=== PATIENT | male | born 1990 | race Caucasian/White ===

== ENCOUNTER 2020-01-12 06:35 | Emergency (ER) | payer SELFPAY ==
[2020-01-12] MEDS ORDERED: Sulfameth/Trimethoprim DS 800-160mg TAB ONE (07:12)
== END 2020-01-12 07:17 | disposition home or self-care (01) ==
LOC: BURERS 06:35
DX: L03.115 Cellulitis of right lower limb (principal); R00.0 Tachycardia, unspecified; J45.909 Unspecified asthma, uncomplicated; F17.210 Nicotine dependence, cigarettes, uncomplicated
CPT/HCPCS: 10060

== ENCOUNTER 2021-06-20 22:29 | Emergency (ER) | payer SELFPAY | END 2021-06-20 23:45 | disposition home or self-care (01) | LOC: BURERS 22:29 | DX: B34.9 Viral infection, unspecified (principal); F17.210 Nicotine dependence, cigarettes, uncomplicated | CPT/HCPCS: 99283 ==

== ENCOUNTER 2021-11-15 16:39 | Emergency (ER) | payer SELFPAY | END 2021-11-15 18:00 | disposition home or self-care (01) | LOC: BURERS 16:39 | DX: S43.101A Unspecified dislocation of right acromioclavicular joint, initial encounter (principal); J45.909 Unspecified asthma, uncomplicated; F17.210 Nicotine dependence, cigarettes, uncomplicated; X58.XXXA Exposure to other specified factors, initial encounter | CPT/HCPCS: 71045 ==

== ENCOUNTER 2022-04-09 12:05 | Emergency (ER) | payer SELFPAY ==
[2022-04-09] MEDS ORDERED: Ondansetron PF 4 MG/2 ML Vial ONE (12:21)
[2022-04-09] MEDS ORDERED: Ketorolac Tromethamine 30 MG/ML VIAL ONE (12:21)
[2022-04-09] MEDS ORDERED: Dicyclomine 20 MG/2 ML VIAL ONE (12:21)
[2022-04-09 12:34] LABS: #Eosinphils 0.1 thou/uL (0.0-0.7); #Lymphocytes 0.4 thou/uL (1.20-3.40); #Monocytes 0.6 thou/uL (0.11-0.59); #Neutrophils 9.8 thou/uL (1.40-6.50); %Basophils 0.3 % (0.0-1.0); %Eosinophils 0.8 % (0.0-10.0); %Lymphocytes 3.3 % (21.0-51.0); %Monocytes 5.3 % (0.0-10.0); %Neutrophils 90.3 % (42.0-75.0); Hemoglobin 17.3 g/dL (14.0-18.0); Mean Corpuscular HGB CONC 32.2 g/dL (32.0-36.0); Mean Corpuscular Hemoglobin 30.6 pg (27.0-31.0); Mean Corpuscular Volume 95.1 fl (78.0-98.0); Mean Platelet Volume 8.3 fL (7.4-10.4); Platelet Count 283 thou/uL (130-400); RBC Distribution Width 13.2 % (11.5-14.5); Red Blood Cell (RBC) Count 5.64 mill/uL (4.70-6.10); White Blood Cell (WBC) Count 10.8 thou/uL (4.8-10.8)
[2022-04-09 12:50] LABS: ALT (SGPT) 23 U/L (8-55); AST (SGOT) 15 U/L (5-34); Albumin 4.4 g/dL (3.5-5.0); Alkaline Phosphatase 74 U/L (40-110); Anion Gap 12 mmol/L (10-20); BUN (Urea Nitrogen) 23 mg/dL (8.9-20.6); Bilirubin, Total 0.7 mg/dL (0.2-1.2); Calc. Creatinine Clearance 0 mL/min (70-130); Calcium 9.2 mg/dL (7.8-10.44); Carbon Dioxide 27 mmol/L (22-29); Chloride 105 mmol/L (98-107); Estimated GFR 106; Globulin 3.1 g/dL (2.4-3.5); Glucose 151 mg/dL (70-105); Lipase 45 U/L (8-78); Protein, Total 7.5 g/dL (6.0-8.3); Sodium 140 mmol/L (136-145)
[2022-04-09] MEDS ORDERED: Iopamidol 370 76% 100 ML VIAL ONE (17:06)
== END 2022-04-09 14:22 | disposition home or self-care (01) ==
LOC: BURERS 12:05
DX: K52.9 Noninfective gastroenteritis and colitis, unspecified (principal); K56.600 Partial intestinal obstruction, unspecified as to cause; F17.210 Nicotine dependence, cigarettes, uncomplicated
CPT/HCPCS: 74177; 80053; 83690; 85025; 96372; 96374; 96375; J1885; J2405; Q9967

== ENCOUNTER 2022-08-03 20:21 | Emergency (ER) | payer SELFPAY ==
[2022-08-03] MEDS ORDERED: Penicillin V Potassium 250 MG TAB ONE (20:56)
== END 2022-08-03 20:58 | disposition home or self-care (01) ==
LOC: BURERS 20:21
DX: K04.7 Periapical abscess without sinus (principal); J45.909 Unspecified asthma, uncomplicated; Z87.891 Personal history of nicotine dependence
CPT/HCPCS: 99282

== ENCOUNTER 2023-08-06 19:46 | Emergency (ER) | payer SELFPAY ==
[2023-08-06] MEDS ORDERED: Lidocaine 2% PF 5 ML VIAL ONE (21:02)
== END 2023-08-06 21:19 | disposition home or self-care (01) ==
LOC: BURERS 19:46
DX: S01.01XA Laceration without foreign body of scalp, initial encounter (principal); Z87.891 Personal history of nicotine dependence; W22.8XXA Striking against or struck by other objects, initial encounter
CPT/HCPCS: 12001; 70450; J2001

== ENCOUNTER 2023-08-16 11:42 | Emergency (ER) | payer SELFPAY | END 2023-08-16 11:57 | disposition home or self-care (01) | LOC: BURERS 11:42 | DX: S01.01XD Laceration without foreign body of scalp, subsequent encounter (principal); J45.909 Unspecified asthma, uncomplicated; E16.2 Hypoglycemia, unspecified; Z55.6 Problems related to health literacy; X58.XXXD Exposure to other specified factors, subsequent encounter ==

== ENCOUNTER 2024-12-06 18:09 | Emergency (ER) | payer SELFPAY ==
[~2024-12-06 18:09] MED LIST: Iopamidol 370 76% 100 ML VIAL ONE
[2024-12-06] MEDS ORDERED: Ketorolac Tromethamine 30 MG (1 mL) VIAL ONE (18:25)
[2024-12-06 18:33] LABS: #Basophils 0.1 thou/uL (0.0-0.2); #Eosinophils 0.2 thou/uL (0.0-0.7); #Lymphocytes 1.8 thou/uL (1.20-3.40); #Monocytes 0.7 thou/uL (0.11-0.59); #Neutrophils 9.4 thou/uL (1.40-6.50); %Basophils 1.1 % (0.0-1.0); %Eosinophils 1.3 % (0.0-10.0); %Lymphocytes 14.6 % (21.0-51.0); %Monocytes 6.0 % (0.0-10.0); %Neutrophils 77.0 % (42.0-75.0); Hematocrit 45.8 % (42.0-52.0); Hemoglobin 14.9 g/dL (14.0-18.0); Mean Corpuscular Hemoglobin 29.8 pg (27.0-31.0); Mean Corpuscular Volume 91.8 fl (78.0-98.0); Platelet Count 327 10x3/uL (130-400); Red Blood Cell (RBC) Count 4.99 mill/uL (4.70-6.10); White Blood Cell (WBC) Count 12.2 10x3/uL (4.8-10.8)
[2024-12-06 18:46] LABS: ALT (SGPT) 68 U/L (Less than 45); AST (SGOT) 57 U/L (11-34); Albumin 4.7 g/dL (3.1-4.5); Alkaline Phosphatase 72 U/L (40-110); Anion Gap 18 mmol/L (10-20); BUN (Urea Nitrogen) 22 mg/dL (8.9-20.6); Bilirubin, Total 0.6 mg/dL (0.3-1.2); Calc. Creatinine Clearance 0 mL/min (70-130); Calcium 10.4 mg/dL (7.8-10.44); Carbon Dioxide 21 mmol/L (22-29); Chloride 104 mmol/L (98-107); Globulin 3.7 g/dL (2.4-3.5); Glucose 170 mg/dL (70-105); Potassium 3.8 mmol/L (3.5-5.1); Sodium 139 mmol/L (136-145)
[2024-12-06 18:47] LABS: Acetaminophen Less than 10 mcg/mL (Less than 10); Lipase 30 U/L (8-78); Salicylate Less than 8.0 mg/dL (Less than 8.0)
[2024-12-06] MEDS ORDERED: Acetaminophen 500 MG TAB ONE (19:25)
[2024-12-06 19:41] LABS: Glucose, Urine (Dipstick) Negative (Negative); Leukocyte Negative (Negative); Protein, Urine (Dipstick) Negative (Neg-Trace); Specific Gravity, Urine 1.020 (1.005-1.030)
[2024-12-06 19:44] LABS: Bacteria/HPF 2+ HPF (None Seen); CAUTI Indications for Culture Alt mental st,lethar; RBC/HPF None Seen HPF (0-3); WBC/HPF 0-3 HPF (0-3)
[2024-12-06 19:45] LABS: Urine Culture Reflex No No
[2024-12-06 19:51] LABS: Cocaine Metabolite Screen Negative (Negative); THC/Cannabinoid Screen PRELIM POSITIVE (Negative); Tricyclic Screen Negative (Negative)
== END 2024-12-06 20:26 | disposition home or self-care (01) ==
LOC: BURERS 18:09
DX: S06.0XAA Concussion with loss of consciousness status unknown, initial encounter (principal); S60.222A Contusion of left hand, initial encounter; S70.02XA Contusion of left hip, initial encounter; S30.810A Abrasion of lower back and pelvis, initial encounter; V29.99XA Rider (driver) (passenger) of other motorcycle injured in unspecified traffic accident, initial encounter; Y92.89 Other specified places as the place of occurrence of the external cause; Z87.891 Personal history of nicotine dependence
CPT/HCPCS: 70450; 71260; 72125; 74177; 80053; 80306; 80307; 81001; 83690; 85025; 96374; J1885; Q9967